=== PATIENT | male | born 1975 | race Caucasian/White ===

== ENCOUNTER 2016-07-15 05:18 | Inpatient (IN) | payer OTHER ==
[~2016-07-15] VITALS: Ht 165.1 cm; Wt 81.6 kg
[2016-07-15 05:22] VITALS: BP 146/98
[2016-07-15] MEDS ORDERED: ONDANSETRON 4 MG/2 ML VIAL IVP ONE ×2 (05:50→13:59)
[2016-07-15] MEDS ORDERED: KETOROLAC 30 MG/ML VIAL IVP ONE ×2 (05:50→13:59)
[2016-07-15] MEDS ORDERED: NACL 0.9% 500 ML IV ONE ×2 (05:50)
--- NOTE | 2016-07-15 06:03 | NUR ---
PT TAKEN TO CT FROM [facility]
--- NOTE | 2016-07-15 06:14 | NUR ---
PATIENT PRESENTS TO ED WITH AB PAIN X 1 HOUR AGO . PT STATES HE WAS AT [facility] WHERE THEY DX HIM WITH GALLSTONE . PT DENIES N/V/D; SKIN IS PINK/WARM/DRY; AAOX4 WITH EVEN AND STEADY GAIT; LUNGS CLEAR BL; HR EVEN AND REGULAR; PT DENIES ANY FEVER, CP, SOB, OR COUGH AT THIS TIME; PATIENT STATES PAIN OF 10/10 AT THIS TIME; VSS; PATIENT POSITIONED FOR COMFORT; HOB ELEVATED; BEDRAILS UP X2; BED DOWN. ER MD MADE AWARE OF PT STATUS.
--- NOTE | 2016-07-15 06:14 | NUR ---
PT TAKEN TO BED 4
--- NOTE | 2016-07-15 06:32 | NUR ---
Dr. Villanueva evaluating patient at bedside.
--- NOTE | 2016-07-15 06:58 | NUR ---
Pt report given to ANDERS WINTER . Transfer of care at this time.
[2016-07-15 07:07] LABS: HEMATOCRIT 44.7 % (36-52); HEMOGLOBIN 14.7 g/dL (12.0-18.0); MEAN CORPUSCULAR HEMOGLOBIN 28 pg (27-31); MEAN CORPUSCULAR HGB CONC 33 g/dL (33-37); MEAN CORPUSCULAR VOLUME 85 fL (80-94); PLATELET COUNT (AUTO) 254 K/uL (140-450); RED BLOOD CELL COUNT(AUTO) 5.27 MIL/uL (4.20-6.10); RED CELL DISTRIBUTION WIDTH 12.3 % (11.6-13.7); WHITE BLOOD COUNT (AUTO) 11.6 K/uL (4.8-10.8)
[2016-07-15 07:23] LABS: BAND % (MANUAL) 1 % (0-8); BASOPHILS % (MANUAL) 0 % (0-2); EOSINOPHILS % (MANUAL) 1 % (0-4); LYMPHOCYTES % (MANUAL) 9 % (20-46); MONOCYTES % (MANUAL) 3 % (5-12); NEUTROPHILS % (MANUAL) 86 (43-65); PLATELET ESTIMATE ADEQUATE
[2016-07-15 07:26] LABS: ANION GAP 11.8 (8-16); CALCIUM 8.3 mg/dL (8.5-10.1); CARBON DIOXIDE 26.9 mmol/L (21-32); CREATININE 0.9 mg/dL (0.6-1.3); POTASSIUM 3.7 mmol/L (3.5-5.1)
[2016-07-15 07:32] LABS: ALBUMIN 3.7 g/dL (3.4-5.0); TOTAL BILIRUBIN 0.3 mg/dL (0.0-1.0); TOTAL PROTEIN, SERUM 7.4 g/dL (6.4-8.2)
--- NOTE | 2016-07-15 08:28 | NUR ---
Patient appears to be resting comfortably in bed. Vital Signs within normal limits. Respirations even and unlabored. WILL CONTINUE TO MONITOR.
--- NOTE | 2016-07-15 08:56 | NUR ---
Dr. Wei notified of requested surgical consultation.
--- NOTE | 2016-07-15 09:17 | NUR ---
CALLED [facility] TO GIVE REPORT, MAGGY CORTEZ STATED WILL CALL BACK.
--- NOTE | 2016-07-15 09:31 | NUR ---
DR. ALVAREZ EVALUATING PT AT BEDSIDE.
--- NOTE | 2016-07-15 09:32 | NUR ---
CALLED DANA RN TO GIVE REPORT; STATED TAKING CARE OF PT, WILL CALL BACK.
[2016-07-15] MEDS ORDERED: NACL 0.9% 1,000 ML IV SCH (09:37)
[2016-07-15] MEDS ORDERED: LORazepam 2 MG/ML VIAL IVP PRN (09:40)
[2016-07-15] MEDS ORDERED: MORPHINE SULFATE 2 MG/ML SYR IVP PRN (09:40)
[2016-07-15] MEDS ORDERED: ONDANSETRON 4 MG/2 ML VIAL IVP PRN ×2 (09:40→14:35)
--- NOTE | 2016-07-15 09:40 | NUR ---
REPORT GIVEN TO DANA WINTER, AT THIS TIME.
--- NOTE | 2016-07-15 09:44 | NUR ---
Patient will be admitted to care of DR. ALVAREZ (DR. CALDERON SURGICAL CONSULT). Admited to M/S. Will go to room 112B. Belongings list completed. Report to MAGGY CORTEZ. PT TRANSFERRED VIA W/C ACCOMAPANIED BY DENISHA BRIGHT AT THIS TIME.
[2016-07-15 10:30] VITALS: BP 141/66
--- NOTE | 2016-07-15 10:30 | NUR ---
RECEIVED PT FROM ER WITH DX: ACUTE CHOLECYSTITIS. PT IS AWAKE AND ALERT, ABLE TO MAKE NEEDS KNOWN. BREATHING EVEN AND UNLABORED. RIGHT FORE ARM #20G IV ACCESS INTACT AND PATENT. INITIAL ASSESSMENT COMPLETED. MRSA NARES SWAP COLLECTED. INTACT SKIN. V/S STABLE. PT C/O RUQ ABDOMINAL PAIN. PT WILL HAVE HIDA GB VASCULAR SCAN SCHEDULE AT 1200. WILL MEDICATE WHEN THE PROCEDURE IS COMPLETED. PT HAS BEEN NPO STATUS AND VERBALIZE UNDERSTANDING FOR PLAN OF CARE, TESTS & PROCEDURES, AND NPO STATUS. ORIENTED PT TO CALL LIGHT, TV, AND BED. WILL CONTINUE TO MONITOR.
--- NOTE | 2016-07-15 12:00 | NUR ---
TECH IN FOR HIDA GB SCAN.
[2016-07-15] MEDS: PIPER/TAZO 3.375GM/D5W PREMIX 50 ML IV SCH ×2 (12:33→20:46)
--- NOTE | 2016-07-15 12:38 | NUR ---
DR. CALDERON PRESENTED AT BEDSIDE. EXPLAINED TO PT AND FOR LAP CHOLECYSTECTOMY. INFORMED CONSENT OBTAINED FROM PT.
--- NOTE | 2016-07-15 12:45 | NUR ---
PRN IV PAIN MED GIVEN AND TOLERATED WELL BY PT.
[2016-07-15] MEDS ORDERED: PIPERACILLIN/TAZOBACTAM 3.375 GM in DEXTROSE 5% 50 ML IV SCH (13:00)
--- NOTE | 2016-07-15 13:15 | NUR ---
PT IS CURRENTLY UNDERGOING HIDA GB SCAN. NO ACUTE DISTRESS NOTED.
[2016-07-15 13:22] LABS: INR 1.1 (0.8-1.2); PARTIAL THROMBOPLASTIN TIME 30.8 secs (22-35.6); PROTHROMBIN TIME 10.5 secs (10.8-13.4)
[2016-07-15] MEDS ORDERED: BUPIVACAINE-MPF/EPI 0.25% 30 ML VIAL INJ ONE (13:39)
--- NOTE | 2016-07-15 13:56 | NUR ---
PT IS OFF UNIT IN STABLE CONDITION FOR SCHEDULE PROCEDURE.
[2016-07-15] MEDS ORDERED: GLYCOPYRROLATE 0.2 MG/ML VIAL IV ONE (13:59)
[2016-07-15] MEDS ORDERED: DEXAMETHASONE 4 MG/ML VIAL IVP ONE (13:59)
[2016-07-15] MEDS ORDERED: PROPOFOL 200 MG/20 ML VIAL IV ONE (13:59)
[2016-07-15] MEDS ORDERED: SUCCINYLCHOLINE CHLORIDE 200 MG/10 ML VIAL IV ONE (13:59)
[2016-07-15] MEDS ORDERED: ROCURONIUM 50 MG/5 ML VIAL IV ONE (13:59)
[2016-07-15] MEDS ORDERED: PHENYLEPHRINE 10 MG/ML VIAL IV ONE (13:59)
[2016-07-15] MEDS ORDERED: DESFLURANE 240 ML BTL INH ONE (13:59)
[2016-07-15] MEDS ORDERED: MIDAZOLAM 2 MG/2 ML VIAL ONE (14:12)
[2016-07-15] MEDS ORDERED: fentaNYL 0.05 MG/ML VIAL ONE (14:13)
[2016-07-15] MEDS ORDERED: HYDROmorphone 1 MG/ML AMP IVP PRN (14:35)
[2016-07-15] MEDS ORDERED: THROMBIN KIT 20 MU VIAL TP ONE (15:48)
[2016-07-15 17:07] LABS: ANION GAP 12.8 (8-16); CALCIUM 7.9 mg/dL (8.5-10.1); CARBON DIOXIDE 26.5 mmol/L (21-32); POTASSIUM 4.3 mmol/L (3.5-5.1)
[2016-07-15 17:13] LABS: ALBUMIN 3.6 g/dL (3.4-5.0); TOTAL BILIRUBIN 0.6 mg/dL (0.0-1.0); TOTAL PROTEIN, SERUM 7.3 g/dL (6.4-8.2)
[2016-07-15 17:20] LABS: HEMATOCRIT 47.6 % (36-52); HEMOGLOBIN 15.4 g/dL (12.0-18.0); MEAN CORPUSCULAR HEMOGLOBIN 28 pg (27-31); MEAN CORPUSCULAR HGB CONC 32 g/dL (33-37); MEAN CORPUSCULAR VOLUME 86 fL (80-94); PLATELET COUNT (AUTO) 272 K/uL (140-450); RED BLOOD CELL COUNT(AUTO) 5.52 MIL/uL (4.20-6.10); RED CELL DISTRIBUTION WIDTH 12.1 % (11.6-13.7); WHITE BLOOD COUNT (AUTO) 15.2 K/uL (4.8-10.8)
[2016-07-15 17:24] LABS: BAND % (MANUAL) 2 % (0-8); LYMPHOCYTES % (MANUAL) 4 % (20-46); MONOCYTES % (MANUAL) 2 % (5-12); NEUTROPHILS % (MANUAL) 92 (43-65); PLATELET ESTIMATE ADEQUATE
--- NOTE | 2016-07-15 17:25 | NUR ---
RECEIVED REPORT AT BEDSIDE FROM RAIL DIRECTOR. PT IS LETHARGIC, OPEN EYES SPONTANEOUSLY. BREATHING EVEN AND UNLABORED. 5 SURGICAL INCISIONS INTACT. NO BLEEDING NOTED. AT BEDSIDE.
[2016-07-15] MEDS: DEXT 5% / NACL 0.45% 1,000 ML IV SCH (17:27)
[2016-07-15 18:30] VITALS: BP 129/79
--- NOTE | 2016-07-15 19:19 | NUR ---
REPORT GIVEN TO [facility] RN AT BEDSIDE. PT IS ON HIS PHONE AT THIS TIME. NO ACUTE DISTRESS NOTED. CALL LIGHT WITHIN REACH.
--- NOTE | 2016-07-15 19:30 | NUR ---
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 PATIENT DENIES PAIN AT THIS TIME BUT NOTED TO MAKE FACIAL GRIMACING WHEN TRYING TO MOVE, OFFERED PAIN MED, PATIENT DENIED. IV TO LEFT FOREARM PATENT AND INTACT WITH IVF INFUSING WELL. EXPLAINED TO PATIENT IMPORTANCE OF GETTING UP OUT OF BED, PATIENT VERBALIZED UNDERSTANDING, DISCUSSED PLAN OF CARE, CALL LIGHT WITHIN REACH WILL CONTINUE TO MONITOR.
--- NOTE | 2016-07-15 20:59 | NUR ---
PM ABX ADMINISTERED, PATIENT RESTING IN BED, CALL LIGHT WITHIN REACH. WILL CONTINUE TO MONITOR.
[2016-07-16] VITALS: BP 110/75
--- NOTE | 2016-07-16 00:15 | NUR ---
PATIENT SLEEPING, NO SOB OR SIGN OF DISTRESS, PATIENT DENIES PAIN AT THIS TIME, VITAL SIGNS STABLE, CALL LIGHT WITHIN REACH. WILL CONTINUE TO MONITOR.
[2016-07-16] MEDS: DEXT 5% / NACL 0.45% 1,000 ML IV SCH ×2 (02:52→12:25)
[2016-07-16] MEDS: HYDROcodone/APAP 5/325 MG 1 TAB TAB PO PRN ×2 (03:05→10:32)
--- NOTE | 2016-07-16 03:15 | NUR ---
PATIENT C/O ABDOMINAL PAIN 5/10, ADMINISTERED MORPHINE PER MD ORDER, WILL CONTINUE TO MONITOR.
[2016-07-16] MEDS: PIPER/TAZO 3.375GM/D5W PREMIX 50 ML IV SCH ×2 (05:37→12:45)
--- NOTE | 2016-07-16 05:40 | NUR ---
PATIENT RESTING IN BED, NO SOB OR SIGN OF DISTRESS, ENCOURAGED PATIENT TO GET OUT OF BED TO AMBULATE, PATIENT STATED HE WANTED TO SLEEP LONGER. CALL LIGHT WITHIN REACH. WILL CONTINUE TO MONITOR
[2016-07-16 06:25] LABS: HEMATOCRIT 39.3 % (36-52); HEMOGLOBIN 13.4 g/dL (12.0-18.0); MEAN CORPUSCULAR HEMOGLOBIN 29 pg (27-31); MEAN CORPUSCULAR HGB CONC 34 g/dL (33-37); MEAN CORPUSCULAR VOLUME 85 fL (80-94); PLATELET COUNT (AUTO) 241 K/uL (140-450); RED BLOOD CELL COUNT(AUTO) 4.64 MIL/uL (4.20-6.10); RED CELL DISTRIBUTION WIDTH 12.1 % (11.6-13.7); WHITE BLOOD COUNT (AUTO) 16.6 K/uL (4.8-10.8)
[2016-07-16 06:54] LABS: POTASSIUM 3.2 mmol/L (3.5-5.1)
[2016-07-16 06:58] LABS: BAND % (MANUAL) 3 % (0-8); LYMPHOCYTES % (MANUAL) 10 % (20-46); MONOCYTES % (MANUAL) 11 % (5-12); NEUTROPHILS % (MANUAL) 76 (43-65)
[2016-07-16 07:19] LABS: ANION GAP 12.5 (8-16); CALCIUM 7.9 mg/dL (8.5-10.1); CARBON DIOXIDE 24.7 mmol/L (21-32); CREATININE 0.7 mg/dL (0.6-1.3); TOTAL BILIRUBIN 0.7 mg/dL (0.0-1.0); TOTAL PROTEIN, SERUM 6.4 g/dL (6.4-8.2)
[2016-07-16 07:20] LABS: MAGNESIUM 1.8 mg/dL (1.8-2.4)
--- NOTE | 2016-07-16 07:44 | NUR ---
ENDORSED PATIENT TO DAY RN AT BEDSIDE, PATIENT IN STABLE CONDITION
[2016-07-16 08:00] VITALS: BP 136/66
--- NOTE | 2016-07-16 08:00 | NUR ---
PATIENT ALERT AND ORIENTED X4, BREATHING EVEN AND UNLABORED BILATERALLY, NO SIGNS OF ACUTE DISTRESS, ABDOMEN SOFT AND ROUND, BOWEL AND BLADDER CONTINENCE, AMBULATES AND ABLE TO PERFORM ADL'S INDEPENDENTLY, SKIN WARM AND DRY WITH 5 ABDOMINAL SURGICAL INCISIONS FROM CHOLECYSTECTOMY, NO COMPLAINT OF ABDOMINAL PAIN AT THIS TIME, BED IN LOW POSITION WITH BILATERAL HALF SIDE RAILS UP, CALL LIGHT WITHIN REACH.
[2016-07-16] MEDS ORDERED: ENOXAPARIN 40 MG/0.4 ML SYR SUBQ SCH (09:00)
[2016-07-16] MEDS ORDERED: ACET-5629 PO (12:56)
[2016-07-16] MEDS ORDERED: ONDA4ODT1 PO (12:57)
--- NOTE | 2016-07-16 15:40 | NUR ---
PT ALERT AND ORIENTED, NO SIGNS OF ACUTE DISTRESS. NO C/O PAIN. SKIN IS WARM AND DRY. S/P LAP ELLA. PROVIDED WOUND CARE TEACHING, DISCUSSED CONTINUING PLAN OF CARE AND TO FOLLOW UP WITH PCP IN 1 WEEK. REVIEWED DISCHARGE PRESCRIPTIONS, INDICATION AND SIDE EFFECTS. PT VERBALIZED UNDERSTANDING. IV LINE AND WRIST BANDS REMOVED. PERSONAL BELONGINGS WITH PT UPON DISCHARGE. PICKED UP BY . ESCORTED TO FRONT LOBBY BY WHEELCHAIR. WO GO HOME BY PRIVATE CAR.
--- NOTE | 2016-07-16 17:24 | NUR ---
SPOKE WITH ADELIA CANSECO, PT'S [phone] AND WAS NOTIFIED BY [facility] IN [place] [phone] THAT THEY NEEDED SOME CLARIFICATION ON PT'S PRESCRIPTION. DR. ALVAREZ MADE AWARE, AND VERBALIZED WILL CALL [facility]. PT AND MADE AWARE.
--- NOTE | 2016-07-17 14:49 | NUR ---
CM NOTE RETRO REVIEW FAXED TO [facility] / FAX# [phone], ATTN: ASHLEE #[phone]
== END 2016-07-16 15:40 | disposition home or self-care (01) | DRG 419 ==
LOC: MED 05:18 → MTU 09:14
PROVIDERS: ADMIT Hospitalist; ATTEND Hospitalist
PROC: 0FT44ZZ Resection of Gallbladder, Percutaneous Endoscopic Approach (ICD-10-PCS; principal; 2016-07-15 13:30)
DX: K80.00 Calculus of gallbladder with acute cholecystitis without obstruction (principal); K82.8 Other specified diseases of gallbladder; F17.210 Nicotine dependence, cigarettes, uncomplicated; D72.829 Elevated white blood cell count, unspecified; I12.9 Hypertensive chronic kidney disease with stage 1 through stage 4 chronic kidney disease, or unspecified chronic kidney disease; N18.9 Chronic kidney disease, unspecified; E66.9 Obesity, unspecified; J45.909 Unspecified asthma, uncomplicated; K21.9 Gastro-esophageal reflux disease without esophagitis; E11.9 Type 2 diabetes mellitus without complications; F03.90 Unspecified dementia, unspecified severity, without behavioral disturbance, psychotic disturbance, mood disturbance, and anxiety; G40.909 Epilepsy, unspecified, not intractable, without status epilepticus; Z68.30 Body mass index [BMI] 30.0-30.9, adult
CPT/HCPCS: 36415; 76705; 78445; 80053; 83690; 83735; 85025; 85610; 85730; 86886; 86900; 86901; 87081; 96361; 96374; 96375; 99285; C1887; J0330; J1100; J1885; J2250; J2270; J2370; J2405; J2543; J2704; J3010; J3490; J7030; J7060; Q0092